=== PATIENT | male | born 1960 | race African-American/Black ===

== ENCOUNTER 2018-10-16 09:51 | Day surgery (SDC) | payer MEDICAID ==
[2018-10-15 13:30] VITALS: BP 118/90
[2018-10-15 13:43] LABS: INR 0.93 (0.85-1.15); PARTIAL THROMBOPLASTIN TIME 29.9 SEC (26.3-35.5); PROTHROMBIN TIME 9.8 SEC (9.6-11.6)
[~2018-10-16] VITALS: Ht 182.9 cm; Wt 88.0 kg
[2018-10-16] VITALS (17 sets, daily range): BP systolic 120–153; BP diastolic 76–94
[2018-10-16] MEDS: CEFAZOLIN SODIUM 1 GM VIAL IVP SCH ×2 (05:00→11:00)
[~2018-10-16 09:51] MED LIST: HYDR-2534 PO
[2018-10-16] MEDS ORDERED: PROPOFOL 10 MG/ML 20ML VIAL IV ONE (10:33)
[2018-10-16] MEDS ORDERED: LIDOCAINE PF 2% 5ML ABBOJECT ONE (10:33)
[2018-10-16] MEDS ORDERED: SUCCINYLCHOLINE 200MG/10ML SYR ONE (10:33)
[2018-10-16] MEDS ORDERED: DEXAMETHASONE SOD PHOSPHATE 10MG/ML 1ML VIAL ONE (10:33)
[2018-10-16] MEDS ORDERED: GLYCOPYRROLATE 1 MG/5 ML SYRINGE ONE (10:33)
[2018-10-16] MEDS ORDERED: ONDANSETRON HCL 4 MG/2 ML VIAL ONE (10:33)
[2018-10-16] MEDS ORDERED: ROCURONIUM 10MG/1ML SYR 10 MG/ML ML ONE (10:34)
[2018-10-16] MEDS ORDERED: MIDAZOLAM HCL 1 MG/ML 2ML VIAL ONE (10:34)
[2018-10-16] MEDS ORDERED: NEOSTIGMINE 5MG/5ML SYR IV ONE (10:34)
[2018-10-16] MEDS ORDERED: FENTANYL CITRATE PF 50 MCG/1 ML 2ML VIAL ONE (10:34)
[2018-10-16] MEDS ORDERED: ROPIVACAINE 0.5% 5MG/ML 30ML IJ ONE (10:42)
[2018-10-16] MEDS ORDERED: LACTATED RINGERS 1000ML 1,000 ML IV ONE (10:42)
--- NOTE | 2018-10-16 13:12 | NUR ---
RECEIVE PT RECEIVED FROM PACU VIA STRETCHER AWAKE ALERT ORIENTED X3. STABLE. NO COMPLAINTS MADE. SLING TO RIGHT ARM IN PLACE, RIGHT ARM ELEVATED WITH PILLOWS, ICE PACK TO SITE. PT STILL NOT ABLE TO MOVE RIGHT FINGERS, NAIL BEDS PINK, CAPILLARY REFILLS BRISK, PT STATES HE CANNOT FEEL WHEN I TOUCHED HIS RIGHT FINGERS, BUT WAS ABLE TO FEEL TO RIGHT ARM. CALL RUANO WITHIN REACH, WILL CALL FOR FAMILY TO COME IN TO THE ROOM.
--- NOTE | 2018-10-16 13:50 | NUR ---
DISCHARGE PT DISCHARGED VIA WHEELCHAIR WITH WISAM FREED. PT STABLE. NO COMPLAINTS MADE. SLING TO RIGHT ARM. DRESSING TO RIGHT ARM REMAINS DRY AND INTACT, CAPILLARY REFILL BRISK. DISCHARGE INSTRUCTIONS GIVEN TO WISAM AND PT, VERBALIZED UNDERSTANDING.
== END 2018-10-16 13:50 | disposition home or self-care (01) ==
LOC: DAH 09:51
DX: M19.131 Post-traumatic osteoarthritis, right wrist (principal); S63.07 Subluxation and dislocation of distal end of ulna; I10 Essential (primary) hypertension; S62.324P Displaced fracture of shaft of fourth metacarpal bone, right hand, subsequent encounter for fracture with malunion; S62.326P Displaced fracture of shaft of fifth metacarpal bone, right hand, subsequent encounter for fracture with malunion; Y92.89 Other specified places as the place of occurrence of the external cause; Y93.9 Activity, unspecified; Y99.9 Unspecified external cause status; Z98.890 Other specified postprocedural states; Z79.899 Other long term (current) drug therapy; Z79.01 Long term (current) use of anticoagulants
CPT/HCPCS: 25240; 36415; 85610; 85730; 88304; 88311; A4218; A4565; A4606; A4649 ×2; A4930 ×2; A6223; J0330; J0690; J1100; J2001; J2250; J2405; J2704; J2710; J2795; J3010; J3490; J7120; Q4051